=== PATIENT | male | born 1960 | race Caucasian/White ===

== ENCOUNTER 2016-11-15 20:50 | Emergency (ER) | payer MEDICARE ==
[2016-11-15 20:51] VITALS: BP 155/87; PULSE 86; RESP 15; TEMP 98.3; O2SAT 94
--- NOTE | 2016-11-15 22:27 | PD ---
Physical Exam Time Seen by Provider: 22:24 Narrative Pt with CP presents with mother for evaluation of abdominal pain. Pt was seen yesterday in [place] ED. CT imaging and "complete workup" was done. Mom states it all came back negative. Pt is non-verbal and mom states he is inconsistent on his complaint. She brought him in today because he started having a fever. Pt has had a coarse cough for 3 weeks. Data Data Last Documented VS Vital Signs Date Time Temp Pulse Resp B/P Pulse Ox O2 Delivery O2 Flow Rate FiO2 11/15/16 20:51 98.3 86 15 155/87 94 Room Air Orders Influenzae A/B Antigen (11/15/16 22:28) Chest, Single Ap (11/15/16 ) MDM Medical Record Reviewed: Yes Supervised Visit with JESSICA: Yes Narrative Course Pt evaluated in Triage. Appears without distress. Coarse cough. Influenza screen and CXR ordered to pend while pt awaits a medical bed. Records have been requested from [facility]. Condition: Stable Kita Romero Nov 15, 2016 22:27 Kita Romero Nov 15, 2016 22:27
--- NOTE | 2016-11-15 22:54 | RADRPT ---
EXAM DATE/TIME: 11/15/2016 22:53 [facility] COMPARISON: No previous studies available for comparison. INDICATIONS : Patient has had flu like symptoms for two days. Patient has had abdomen pain and a productive cough. MEDICAL HISTORY : None. SURGICAL HISTORY : None. ENCOUNTER: Initial ACUITY: 2 days PAIN SCORE: 7/10 LOCATION: Abdomen. FINDINGS: A single view of the chest demonstrates the lungs to be symmetrically aerated without evidence of mas s, infiltrate or effusion. The cardiomediastinal contours are unremarkable. Osseous structures are intact. CONCLUSION: No acute disease. Delio Soriano MD on November 15, 2016 at 22:53 Board Certified Radiologist. This report was verified electronically.
== END 2016-11-16 01:00 | disposition left against medical advice (07) ==
LOC: NED 20:50
DX: R10.9 Unspecified abdominal pain (principal); R05 Cough; R50.9 Fever, unspecified; Z53.20 Procedure and treatment not carried out because of patient's decision for unspecified reasons
CPT/HCPCS: 71010; 87804; 99284